=== PATIENT | female | born 1975 | race Caucasian/White ===

== ENCOUNTER 2019-02-20 10:10 | Emergency (ER) | payer MEDICAID ==
[~2019-02-20] VITALS: Ht 152.4 cm; Wt 62.6 kg
[~2019-02-20 10:10] MED LIST: PREN-385 PO
--- NOTE | 2019-02-20 10:16 | NUR ---
Pt taken to bed 6.
[2019-02-20 10:23] VITALS: BP 128/64
--- NOTE | 2019-02-20 10:23 | NUR ---
PT. BROUGHT IN BY SELF COMPLAINING OF COUGH X4DAYS PAIN 9/10 WITH COUGH, DULL PAIN, NON RADIATING. BILATERAL WHEEZES IN LOWER LUNG BASES RR 16, NON-LABORED, O2 SAT 99%. SKIN COLOR WITHIN NORMAL LIMITS. DENIES CHEST PAIN. POSITIVE SICK CONTACTS. VSS. ER MD TO SEE PT. MHX: ASTHMA RX: NON REPORTED
--- NOTE | 2019-02-20 10:33 | NUR ---
Dr. Charles evaluating patient at bedside.
[2019-02-20 10:38] VITALS: BP 128/64
--- NOTE | 2019-02-20 10:38 | NUR ---
Patient discharged with v/s stable BY DR. RAE. Written and verbal after care instructions given and explained. Patient alert, oriented and verbalized understanding of instructions. Ambulatory with steady gait. All questions addressed prior to discharge. ID band removed. Patient advised to follow up with PMD. Rx of AUGMENTIN AND TESSALON PERLES given. Patient educated on indication of medication including possible reaction and side effects. Opportunity to ask questions provided and answered.
== END 2019-02-20 10:38 | disposition home or self-care (01) ==
LOC: MED 10:10
DX: J20.9 Acute bronchitis, unspecified (principal); J45.909 Unspecified asthma, uncomplicated; Z98.890 Other specified postprocedural states; Z79.899 Other long term (current) drug therapy
CPT/HCPCS: 99283

== ENCOUNTER 2020-02-05 12:12 | Emergency (ER) | payer MEDICAID ==
[~2020-02-05] VITALS: Ht 152.4 cm; Wt 66.2 kg
[2020-02-05 12:15] VITALS: BP 153/94
--- NOTE | 2020-02-05 12:15 | NUR ---
Pt taken to bed 9.
--- NOTE | 2020-02-05 12:34 | NUR ---
44 Y/O FEMALE PRESENTS WITH BILAT EYE REDNESS WITH HEADACHE THAT BEGAN THIS MORNING WHEN PATIENT WOKE UP. PATIENT STATES SHE IS ALSO HAVING N/V THAT BEGAN THIS MORNING. DENIES ANY EYE ITCHINESS. RESP EVEN AND UNLABORED. VSS.
[2020-02-05] MEDS ORDERED: ACETAMINOPHEN EXTRA STRENGTH 500 MG TAB PO ONE (12:45)
[2020-02-05] MEDS ORDERED: ONDANSETRON 4 MG ODT PO ONE (12:45)
[2020-02-05] MEDS ORDERED: KETOROLAC 30 MG/ML VIAL IM ONE (12:45)
--- NOTE | 2020-02-05 13:01 | NUR ---
Visual acutiy obtained: Right Eye- 20/20, Left Eye 20/25, Both Eyes 20/25. Results given to Dr. Linder.
--- NOTE | 2020-02-05 13:03 | NUR ---
Pt placed back in bed 9. Lights dimmed in room. Warm blanket provided along with pillow. Patient placed in position of comfort.
[2020-02-05 14:43] VITALS: BP 153/94
--- NOTE | 2020-02-05 14:43 | NUR ---
Patient discharged with v/s stable. Written and verbal after care instructions given and explained. Patient alert, oriented and verbalized understanding of instructions. Ambulatory with steady gait. All questions addressed prior to discharge. ID band removed. Patient advised to follow up with PMD. Rx of POLYTRIM, FLORINAL given. Patient educated on indication of medication including possible reaction and side effects. Opportunity to ask questions provided and answered.
== END 2020-02-05 14:43 | disposition home or self-care (01) ==
LOC: MED 12:12
DX: H10.9 Unspecified conjunctivitis (principal); G44.209 Tension-type headache, unspecified, not intractable; J45.909 Unspecified asthma, uncomplicated; Z79.899 Other long term (current) drug therapy; Z98.890 Other specified postprocedural states
CPT/HCPCS: 96372; 99283; J1885; Q0162

== ENCOUNTER 2020-08-23 19:09 | Emergency (ER) | payer MEDICAID ==
[~2020-08-23] VITALS: Ht 152.4 cm; Wt 66.7 kg
[2020-08-23 19:14] VITALS: BP 139/87
--- NOTE | 2020-08-23 19:22 | NUR ---
PATIENT AMBULATED TO BED 3 WITH STEADY GAIT.
--- NOTE | 2020-08-23 19:24 | NUR ---
PATIENT AMBULATED TO RESTROOM WITH STEADY GAIT.
--- NOTE | 2020-08-23 19:33 | NUR ---
PATIENT 44 Y.O. BIB SELF FOR C/O RUQ ABDOMINAL PAIN THAT RADIATES TO THE RIGHT FLANK. PATIENT REPORTS HX OF GALL STONES AND GASTRITIS. PAIN BEGAN X 1 DAY. ABDOMEN IS SOFT AND TENDER TO TOUCH IN RUQ. ACTIVE BOWEL SOUNDS X 4. PATIENT REPORTS N/V, DENIES DIARRHEA. SKIN IS WARM, DRY, AND INTACT. RESPIRATIONS EVEN AND UNLABORED. PATIENT DENIES SOB, CP, FEVER, CHILLS. BED IS LOCKED AND IN LOWEST POSITION, BED RAIL X1. MED HX: ASTHMA, GALLSTONES ALLERGIES: NKA
[2020-08-23] MEDS ORDERED: KETOROLAC 15 MG/ML VIAL IVP ONE (19:35)
[2020-08-23] MEDS ORDERED: ONDANSETRON 4 MG/2 ML VIAL IVP ONE (19:35)
[2020-08-23] MEDS ORDERED: MORPHINE SULFATE 2 MG/ML SYR IVP ONE (19:35)
--- NOTE | 2020-08-23 19:45 | NUR ---
LABS DRAWN AND HAND GIVEN TO COMPUTER REPAIR ENGINEER AT BEDSIDE.
[2020-08-23 19:54] LABS: BASOPHILS # (AUTO) 0.1 K/uL (0.00-0.22); BASOPHILS % (AUTO) 0.8 % (0.0-2.0); EOSINOPHILS # (AUTO) 0.4 K/uL (0-0.4); EOSINOPHILS % (AUTO) 3.9 % (0.0-4.0); HEMATOCRIT 39.7 % (36-48); HEMOGLOBIN 13.5 g/dL (12.0-16.0); LYMPHOCYTES # (AUTO) 1.9 K/uL (2.5-16.5); LYMPHOCYTES % (AUTO) 20.5 % (20.5-51.1); MEAN CORPUSCULAR HEMOGLOBIN 31 pg (27-31); MEAN CORPUSCULAR HGB CONC 34 g/dL (33-37); MEAN CORPUSCULAR VOLUME 90.5 fL (80-94); MONOCYTES # (AUTO) 0.5 K/uL (0.8-1.0); NEUTROPHILS # (AUTO) 6.6 K/uL (1.8-7.7); NEUTROPHILS % (AUTO) 69.8 % (42.2-75.2); PLATELET COUNT (AUTO) 267 K/uL (140-450); RED BLOOD CELL COUNT(AUTO) 4.39 MIL/uL (4.20-5.40); RED CELL DISTRIBUTION WIDTH 13.2 % (11.6-13.7); WHITE BLOOD COUNT (AUTO) 9.5 K/uL (4.8-10.8)
[2020-08-23 20:05] LABS: ALBUMIN 3.4 g/dL (3.4-5.0); ANION GAP 8.4 (8-16); CARBON DIOXIDE 29.1 mmol/L (21-32); CREATININE 0.6 mg/dL (0.6-1.3); POTASSIUM 3.5 mmol/L (3.5-5.1); TOTAL BILIRUBIN 0.2 mg/dL (0.0-1.0)
--- NOTE | 2020-08-23 20:30 | NUR ---
ULTRASOUND AT BEDSIDE.
[2020-08-23] MEDS ORDERED: ONDA4ODT2 PO (21:31)
[2020-08-23] MEDS ORDERED: FAMO-90 PO (21:31)
[2020-08-23] MEDS ORDERED: MAG355OR2 PO (21:31)
[2020-08-23 21:43] VITALS: BP 135/85
--- NOTE | 2020-08-23 21:43 | NUR ---
Patient discharged with v/s stable. Written and verbal after care instructions given and explained. Patient alert, oriented and verbalized understanding of instructions. Ambulatory with steady gait. All questions addressed prior to discharge. ID band removed. Patient advised to follow up with PMD. Rx of FAMOTIDINE, MAALOX, ONDANSETRON given. Patient educated on indication of medication including possible reaction and side effects. Opportunity to ask questions provided and answered.
== END 2020-08-23 21:43 | disposition home or self-care (01) ==
LOC: MED 19:09
DX: K80.51 Calculus of bile duct without cholangitis or cholecystitis with obstruction (principal); K29.70 Gastritis, unspecified, without bleeding; J45.909 Unspecified asthma, uncomplicated; Z79.899 Other long term (current) drug therapy
CPT/HCPCS: 36415; 76705; 80053; 81002; 81025; 83690; 85025; 96374; 96375; 99284; J1885; J2270; J2405

== ENCOUNTER 2022-11-30 09:03 | Inpatient (IN) | payer MEDICAID ==
[~2022-11-30] VITALS: Ht 157.5 cm; Wt 67.6 kg
[~2022-11-30 09:03] MED LIST changes: +FAMO-90 PO; +MAG355OR2 PO; +ONDA4ODT2 PO
[2022-11-30 09:16] VITALS: BP 181/107; PULSE 85; RESP 20; TEMP 97.8; O2SAT 97
--- NOTE | 2022-11-30 09:30 | NUR ---
PT TAKEN TO BED 11
[2022-11-30] MEDS ORDERED: PROCHLORPERAZINE 10 MG/2 ML VIAL IVP ONE (09:40)
[2022-11-30] MEDS ORDERED: diphenhydrAMINE 50 MG/ML VIAL IVP ONE (09:40)
[2022-11-30 09:56] LABS: BASOPHILS % (AUTO) 0.8 % (0.0-2.0); EOSINOPHILS # (AUTO) 0.1 K/uL (0-0.4); EOSINOPHILS % (AUTO) 2.4 % (0.0-4.0); HEMATOCRIT 43.2 % (36-48); HEMOGLOBIN 14.6 g/dL (12.0-16.0); LYMPHOCYTES # (AUTO) 2.5 K/uL (2.5-16.5); MEAN CORPUSCULAR HEMOGLOBIN 30 pg (27-31); MEAN CORPUSCULAR HGB CONC 34 g/dL (33-37); MEAN CORPUSCULAR VOLUME 89.9 fL (80-94); MONOCYTES # (AUTO) 0.3 K/uL (0.8-1.0); MONOCYTES % (AUTO) 5.6 % (1.7-9.3); NEUTROPHILS # (AUTO) 2.5 K/uL (1.8-7.7); NEUTROPHILS % (AUTO) 45.2 % (42.2-75.2); PLATELET COUNT (AUTO) 310 K/uL (140-450); RED CELL DISTRIBUTION WIDTH 13.3 % (11.6-13.7); WHITE BLOOD COUNT (AUTO) 5.5 K/uL (4.8-10.8)
[2022-11-30 10:13] LABS: ALBUMIN 3.5 g/dL (3.4-5.0); ANION GAP 15.6 (8-16); ASPARTATE AMINOTRANSFERASE 19 U/L (15-37); CARBON DIOXIDE 23.3 mmol/L (21-32); CHLORIDE 104 mmol/L (98-107); CREATININE 0.6 mg/dL (0.6-1.3); GFR ARICAN-AMERICAN 139 mL/min (>90); GLUCOSE 104 mg/dL (74-106); POTASSIUM 3.9 mmol/L (3.5-5.1); PROTHROMBIN TIME 9.6 secs (10.8-13.4); SODIUM SERUM 139 mmol/L (136-145); TOTAL BILIRUBIN 0.3 mg/dL (0.0-1.0); UREA NITROGEN, BLOOD 9 mg/dL (7-18)
[2022-11-30 10:57] LABS: APPEARANCE,URINE CLEAR (CLEAR); BILIRUBIN,URINE NEGATIVE (NEGATIVE); BLOOD, URINE TRACE-I (NEGATIVE); COLOR,URINE YELLOW (YELLOW); LEUKOCYTE ESTERASE ,URINE NEGATIVE (NEGATIVE); NITRITE, URINE NEGATIVE (NEGATIVE); UGLUCOSE NEGATIVE (NEGATIVE)
[2022-11-30 11:08] LABS: RBC,URINE 0-5 /HPF (0-5)
[2022-11-30 11:09] LABS: BARBITURATE, URINE NEGATIVE ng/ml (NEG <=200); BENZODIAZEPINE, URINE NEGATIVE ng/mL (NEG <=200); CANNABINOID, URINE NEGATIVE ng/mL (NEG <=50); COCAINE, URINE NEGATIVE ng/mL (NEG <=300); OPIATE, URINE NEGATIVE ng/mL (NEG <=2000); PHENCYCLIDINE SCREEN,URINE NEGATIVE ng/mL (NEG <=25)
--- NOTE | 2022-11-30 11:23 | NUR ---
AMBULATES TO BR WITH STEADY GAIT
--- NOTE | 2022-11-30 11:38 | NUR ---
TELENEURO INTITATED CONNECT ID: [id number]
--- NOTE | 2022-11-30 11:52 | NUR ---
TELE NEURO WITH CARDIOVASCULAR TECHNOLOGIST #[id number]
[2022-11-30] MEDS ORDERED: ZOLPIDEM 10 MG TAB PO PRN (12:10)
[2022-11-30] MEDS ORDERED: ACETAMINOPHEN 325 MG TAB PO PRN (12:10)
[2022-11-30] MEDS ORDERED: ONDANSETRON 4 MG/2 ML VIAL IVP PRN (12:10)
[2022-11-30] MEDS ORDERED: MORPHINE SULFATE 2 MG/ML SYR IVP PRN (12:10)
[2022-11-30] MEDS ORDERED: POTASSIUM CHLORIDE 10 MEQ TABER PO PRN (12:10)
[2022-11-30] MEDS ORDERED: LORazepam 2 MG/ML VIAL IVP PRN (12:10)
[2022-11-30] MEDS ORDERED: DOCUSATE SODIUM 100 MG GELCAP PO PRN (12:10)
[2022-11-30] MEDS ORDERED: MAG SULF 2000 MG/WATER PREMIX 50 ML IV PRN (12:10)
--- NOTE | 2022-11-30 13:30 | NUR ---
NURSE REPORT REPORT OBTAINED FROM ER NURSE BART
[2022-11-30 14:10] VITALS: PULSE 71; RESP 71; O2SAT 97
--- NOTE | 2022-11-30 14:10 | NUR ---
NURSE NOTES PATIENT TRANSFERRED FROM THE ER VIA GURNEY. ABLE TO WALK FROM GURMCCALL TO BED. NO C/O PAIN OR DISCOMFORT.
--- NOTE | 2022-11-30 14:30 | NUR ---
NURSE NOTES VSS. AFEB. C/O SLIGHT MIGRAINE PAIN AT THIS TIME.
[2022-11-30 16:00] VITALS: BP 118/79; PULSE 73; PULSE 74; RESP 18; TEMP 97.8; O2SAT 98
--- NOTE | 2022-11-30 16:17 | NUR ---
NURSE NOTES MEDICATED FOR PAIN WITH MORPHINE 2 MG AT THIS TIME. VSS. AFEB. TELE SR 82.
--- NOTE | 2022-11-30 19:45 | NUR ---
NURSE REPORT REPORT GIVEN TO NIGHT NURSE JENARO TO ASSUME CARE OF PATIENT. ALL QUESTIONS ANSWERED. RENE FUCHS RN
--- NOTE | 2022-11-30 19:50 | NUR ---
RECEIVED PT FROM AM NURSE FOR CONTINUITY OF CARE. PT IS STABLE
[2022-11-30 20:00] VITALS: BP 124/77; PULSE 79; PULSE 81; RESP 18; TEMP 97.1; O2SAT 98
[2022-12-01] VITALS (8 sets, daily range): BP systolic 124–156; BP diastolic 60–82; PULSE 73–85; RESP 18–20; TEMP 97.4–98.1; O2SAT 96–98
[2022-12-01 05:06] LABS: BASOPHILS % (AUTO) 0.6 % (0.0-2.0); EOSINOPHILS # (AUTO) 0.2 K/uL (0-0.4); HEMOGLOBIN 14.1 g/dL (12.0-16.0); LYMPHOCYTES # (AUTO) 2.3 K/uL (2.5-16.5); LYMPHOCYTES % (AUTO) 39.5 % (20.5-51.1); MEAN CORPUSCULAR HEMOGLOBIN 31 pg (27-31); MEAN CORPUSCULAR HGB CONC 34 g/dL (33-37); MEAN CORPUSCULAR VOLUME 91.2 fL (80-94); MONOCYTES # (AUTO) 0.4 K/uL (0.8-1.0); MONOCYTES % (AUTO) 6.1 % (1.7-9.3); NEUTROPHILS # (AUTO) 2.9 K/uL (1.8-7.7); NEUTROPHILS % (AUTO) 50.8 % (42.2-75.2); PLATELET COUNT (AUTO) 281 K/uL (140-450); RED CELL DISTRIBUTION WIDTH 13.3 % (11.6-13.7); WHITE BLOOD COUNT (AUTO) 5.8 K/uL (4.8-10.8)
[2022-12-01 05:45] LABS: ANION GAP 12.2 (8-16); CARBON DIOXIDE 24.7 mmol/L (21-32); CREATININE 0.5 mg/dL (0.6-1.3); POTASSIUM 3.9 mmol/L (3.5-5.1)
--- NOTE | 2022-12-01 07:05 | NUR ---
ASSUMED CONTINUITY OF CARE. INITIAL ASSESSMENT DONE. KEEP COMFORTABLE ON BED. EXPLAINED USE OF CALL LIGHT/BED/TV/BATHROOM. VERBALIZED UNDERSTANDING. DENIS LIGHT WITHIN REACH.
--- NOTE | 2022-12-01 08:00 | NUR ---
Patient's Plan of Care was discussed and reviewed with BASKETBALL COMMENTATOR: HECTOR SHAW
--- NOTE | 2022-12-01 09:07 | NUR ---
PATIENT HAS BEEN SCREENED AND CATEGORIZED LOW NUTRITION RISK. PATIENT WILL BE SEEN WITHIN 7 DAYS OF ADMISSION. 12/07/[address]
--- NOTE | 2022-12-01 10:05 | NUR ---
CHARGE NURSE SKYE -CHANDNI PAGED DR. PEDRAZA REGARDING HOLDING OF ASPIRIN AND LOVENOX ORDERED.
[2022-12-01] MEDS: ATORVASTATIN 20 MG TAB PO SCH (10:10)
--- NOTE | 2022-12-01 10:35 | NUR ---
DR. PEDRAZA PAGED BACK AND ORDERED TO GIVEN ASPIRIN 81 MG PO DAILY AND LOVENOX 40 MG SUB-Q DAILY DESPITE OF PT. MRI BRAIN WITHOUT CONTRAST THAT WILL BE DONE IN [facility] TODAY. INFORMED CHARGE NURSE SKYE DSOUZA.
[2022-12-01] MEDS: ENOXAPARIN 40 MG/0.4 ML SYR SUBQ SCH (11:03)
[2022-12-01] MEDS: ECOTRIN 81 MG TABEC PO SCH (11:04)
--- NOTE | 2022-12-01 11:06 | NUR ---
[facility] WITH RAILROAD CAR CLEANING SUPERVISOR #[id number] (MAGED) USED FOR MRI BRAIN WITHOUT CONTRAST QUESTIONNAIRE.
--- NOTE | 2022-12-01 12:42 | NUR ---
[facility] [place]RA[place] [facility] CONTR[facility] WITH [facility] MEDICAL TRANSPORTER. INFORMED CHARGE NURSE SKYE DSOUZA.
--- NOTE | 2022-12-01 14:14 | NUR ---
CAME BACK FROM [facility] VIA GURNEY WITH [facility] MEDICAL TRANSPORTER. NO C/O PAIN. NO SOB, NOTED. NO C/O N/V. KEEP COMFORTABLE ON BED.
--- NOTE | 2022-12-01 15:57 | NUR ---
DC PLANNING A 47 YEAR OLD FEMALE PATIENT ADMITTED TO MED SURG UNIT 11/30 FOR SEVERE HEADACHE AND NEUROLOGICAL CHANGES WITH ASSOCIATED BLURRED VISION, RIGHT SIDED WEAKNESS AND NUMBNESS.MRI OF THE BRAIN WITHOUT CONTRAST WAS REQUESTED AND DONE.DC PLAN-DC HOME WHEN MRI IS NEGATIVE AND PATIENT CONDITION IMPROVES.CM TO FOLLOW.
--- NOTE | 2022-12-01 19:17 | NUR ---
REPORT GIVEN TO CYNDIE DSOUZA. NO C/O PAIN. IN STABLE CONDITION.
--- NOTE | 2022-12-01 20:00 | NUR ---
ROUNDS , PT TEXTING , RESTING ON BED COMFORTABLY , DENIES ANY PAIN , IV SITE INTACT AND PATENT , WILL CONT. TO MONITOR , CALL LIGHT WITHIN REACH .
--- NOTE | 2022-12-02 | NUR ---
NO COMPLAIN MADE , WILL CONT. TO MONITOR, CALL LIGHT WITHIN REACH .
[2022-12-02 04:00] VITALS: BP 128/80; PULSE 84; RESP 18; TEMP 98; O2SAT 99
--- NOTE | 2022-12-02 04:00 | NUR ---
ROUNDS , NO S/SX OF ACUTE DISTRESS NOTED , WILL CONT. TO MONITOR .
[2022-12-02 05:13] LABS: BASOPHILS % (AUTO) 0.8 % (0.0-2.0); EOSINOPHILS # (AUTO) 0.2 K/uL (0-0.4); EOSINOPHILS % (AUTO) 3.3 % (0.0-4.0); HEMATOCRIT 41.8 % (36-48); HEMOGLOBIN 14.1 g/dL (12.0-16.0); LYMPHOCYTES # (AUTO) 2.4 K/uL (2.5-16.5); LYMPHOCYTES % (AUTO) 38.5 % (20.5-51.1); MEAN CORPUSCULAR HEMOGLOBIN 31 pg (27-31); MEAN CORPUSCULAR HGB CONC 34 g/dL (33-37); MEAN CORPUSCULAR VOLUME 90.4 fL (80-94); MONOCYTES # (AUTO) 0.4 K/uL (0.8-1.0); NEUTROPHILS # (AUTO) 3.2 K/uL (1.8-7.7); NEUTROPHILS % (AUTO) 50.4 % (42.2-75.2); PLATELET COUNT (AUTO) 273 K/uL (140-450); RED BLOOD CELL COUNT(AUTO) 4.62 MIL/uL (4.20-5.40); RED CELL DISTRIBUTION WIDTH 13.2 % (11.6-13.7); WHITE BLOOD COUNT (AUTO) 6.3 K/uL (4.8-10.8)
[2022-12-02 05:24] LABS: ANION GAP 10.2 (8-16); CARBON DIOXIDE 26.7 mmol/L (21-32); CREATININE 0.5 mg/dL (0.6-1.3); POTASSIUM 3.9 mmol/L (3.5-5.1)
--- NOTE | 2022-12-02 06:00 | NUR ---
ROUNDS , NO COMPLAIN MADE .
[2022-12-02] MEDS ORDERED: ASPI-1822 PO (06:33)
[2022-12-02] MEDS ORDERED: ATOR20TA PO (06:33)
--- NOTE | 2022-12-02 07:20 | NUR ---
RECEIVED PT FROM [facility] FOR CONTINUITY OF CARE. ALERT AND ORIENTED X 4. RESP. EVEN AND UNLABORED. IV SITE PATENT AND INTACT. ON SALINE LOCK. NO C/O PAIN OR DISCOMFORT. CALL LIGHT KEPT WITHIN REACH. WILL CONTINUE TO MONITOR.
--- NOTE | 2022-12-02 07:26 | NUR ---
ENDORSED FOR CONT. OF CARE .
[2022-12-02 08:00] VITALS: BP 116/83; PULSE 81; RESP 18; TEMP 97.4; O2SAT 95
[2022-12-02] MEDS: ATORVASTATIN 20 MG TAB PO SCH (09:57)
[2022-12-02] MEDS: ECOTRIN 81 MG TABEC PO SCH (09:57)
--- NOTE | 2022-12-02 09:57 | NUR ---
SCHEDULED MEDICATIONS GIVEN. TOLERATED WELL.
[2022-12-02] MEDS: ENOXAPARIN 40 MG/0.4 ML SYR SUBQ SCH (09:59)
== END 2022-12-02 14:17 | disposition home or self-care (01) | DRG 47 ==
LOC: MED 09:03 → MTU 12:09 → MMU 13:11
PROVIDERS: ADMIT Family Medicine; ATTEND Family Medicine
DX: G45.9 Transient cerebral ischemic attack, unspecified (principal); G81.91 Hemiplegia, unspecified affecting right dominant side; G43.809 Other migraine, not intractable, without status migrainosus; J45.909 Unspecified asthma, uncomplicated; Z79.899 Other long term (current) drug therapy
CPT/HCPCS: 36415; 70450; 80048; 80053; 80305; 81001; 81003; 83735; 84484; 85025; 85610; 85730; 86886; 86900; 86901; 87081; 92526; 96374; 96375; 97116; 97163-GP; 99285; J0780; J1200; J1650; J2270; Q9967

== ENCOUNTER 2023-10-21 20:18 | Emergency (ER) | payer MEDICAID ==
[~2023-10-21] VITALS: Ht 157.5 cm; Wt 70.3 kg
[~2023-10-21 20:18] MED LIST changes: +ASPI-1822 PO; +ATOR20TA PO; -MAG355OR2 PO
[2023-10-21 20:29] VITALS: BP 168/84; PULSE 84; RESP 16; TEMP 97.9; O2SAT 98
[2023-10-21] MEDS: ACETAMINOPHEN EXTRA STRENGTH 500 MG TAB PO ONE (21:29)
[2023-10-21] MEDS ORDERED: CEPH-588 PO (21:31)
[2023-10-21 21:52] LABS: BASOPHILS % (AUTO) 0.5 % (0.0-2.0); EOSINOPHILS # (AUTO) 0.5 K/uL (0-0.4); EOSINOPHILS % (AUTO) 5.4 % (0.0-4.0); HEMATOCRIT 37.9 % (36-48); HEMOGLOBIN 12.7 g/dL (12.0-16.0); LYMPHOCYTES # (AUTO) 2.8 K/uL (2.5-16.5); LYMPHOCYTES % (AUTO) 32.7 % (20.5-51.1); MEAN CORPUSCULAR HEMOGLOBIN 30 pg (27-31); MEAN CORPUSCULAR HGB CONC 34 g/dL (33-37); MEAN CORPUSCULAR VOLUME 89.9 fL (80-94); MONOCYTES # (AUTO) 0.5 K/uL (0.8-1.0); MONOCYTES % (AUTO) 6.2 % (1.7-9.3); NEUTROPHILS # (AUTO) 4.7 K/uL (1.8-7.7); NEUTROPHILS % (AUTO) 55.2 % (42.2-75.2); PLATELET COUNT (AUTO) 256 K/uL (140-450); RED BLOOD CELL COUNT(AUTO) 4.21 MIL/uL (4.20-5.40); RED CELL DISTRIBUTION WIDTH 13.1 % (11.6-13.7); WHITE BLOOD COUNT (AUTO) 8.5 K/uL (4.8-10.8)
[2023-10-21 22:01] LABS: ANION GAP 13.1 (8-16); CALCIUM 8.9 mg/dL (8.5-10.1); CARBON DIOXIDE 23.5 mmol/L (21-32); CREATININE 0.6 mg/dL (0.6-1.3); POTASSIUM 3.6 mmol/L (3.5-5.1)
== END 2023-10-21 23:29 | disposition home or self-care (01) ==
LOC: MED 20:18
DX: L03.115 Cellulitis of right lower limb (principal); I10 Essential (primary) hypertension; Z79.899 Other long term (current) drug therapy
CPT/HCPCS: 36415; 80048; 85025; 85379; 99283